=== PATIENT | female | born 1940 | race Caucasian/White ===

== ENCOUNTER 2017-02-15 00:38 | Observation (INO) ==
[2017-02-15] MEDS ORDERED: Aspirin 81 MG TAB.CHEW PO ONE (00:52)
--- NOTE | 2017-02-15 01:06 | Emergency Department Note ---
Disposition Clinical Impression: Angina at rest Chest pain Qualifiers: Chest pain type: unspecified Qualified Code(s): R07.9 - Chest pain, unspecified Disposition: Admitted As Inpatient Condition: Good Referrals: NO,PCP [Primary Care Provider] - Forms: ED Satisfaction Letter Time of Disposition: 01:25 Chest Pain HPI - General Chief Complaint: ED Chest Pain Stated Complaint: chest pain Time Seen by Provider: 02/15/17 00:44 Source: patient, family Limitations: no limitations Vital Signs Reviewed: Yes Nursing Notes Reviewed: Yes - History of Present Illness HPI Narrative: Sternal chest pressure radiating to her back and left ear that started 3-4 hours ago while watching TV from rest. Associated worsening dyspnea. Pt complaint: chest pain Onset (ago): hour(s) Duration: constant Onset: during rest Pain Location: substernal Severity: mild Severity scale (1-10): 3 Quality: tightness Pain Radiation: back, jaw/teeth Improves with: nothing Worsens with: nothing Associated symptoms: Reports: dyspnea Treatments prior to arrival chest pain: other (Aleve) - Related Data Home Medications Medication Instructions Recorded Confirmed Levothyroxine [Synthroid] 150 mcg PO DAILY 11/09/15 12/30/15 Metoprolol [Lopressor] 25 mg PO BID 11/09/15 12/30/15 Cholecalciferol (Vitamin D3) 400 unit PO DAILY 12/30/15 12/30/15 [Vitamin D3] Cyanocobalamin (Vitamin B-12) 100 mcg PO DAILY 12/30/15 12/30/15 [Vitamin B-12] Lisinopril 2.5 mg PO DAILY 12/30/15 12/30/15 Previous Rx's Medication Instructions Recorded Furosemide [Lasix] 20 mg PO DAILY #30 tablet 11/10/15 Allergies Allergy/AdvReac Type Severity Reaction Status Date / Time [id number]-Cyf-Puh Reductase AdvReac Intermediate Cramping Verified 11/09/15 13:22 Inhibitor of the [Statins] Muscles drinking alcohol AdvReac Redness of Uncoded 12/30/15 09:39 Skin All systems ED: reviewed and negative except as stated. Constitutional: Reports: as per HPI Eyes: Reports: as per HPI ENT ED: Reports: as per HPI Cardiovascular: Reports: chest pain Respiratory: Reports: dyspnea Gastrointestinal: Reports: as per HPI Genitourinary: Reports: as per HPI Musculoskeletal: Reports: as per HPI Integumentary: Reports: as per HPI Neurological: Reports: as per HPI Psychiatric: Reports: as per HPI Endocrine: Reports: as per HPI Hematological/Lymphatic: Reports: as per HPI Allergic/Immunologic: Reports: as per HPI Chest Pain PMH - Past Medical History Medical history: Reports: arthritis, cancer, CHF, hyperlipidemia, hypertension, kidney stones, thyroid disease Surgical history: Reports: appendectomy, breast surgery, cholecystectomy, orthopedic, other, pacemaker/AICD Psychiatric history: Reports: anxiety - Social History Smoking Status: Never smoker Alcohol use: Reports: none Drug use: Reports: none Physical Exam - General Limitations: no limitations General appearance: alert, in no apparent distress - Head Head exam: atraumatic - Eye Eye exam: Present: normal appearance - ENT ENT exam: normal exam - Neck Neck exam: Present: normal inspection, full ROM - Chest Chest inspection: Present: normal inspection, symmetric chest wall rise. Absent : tenderness - Respiratory Respiratory exam: Present: normal lung sounds bilaterally - Cardiovascular Cardiovascular exam: Present: tachycardia, normal heart sounds - Rectal Exam Rectal exam: Present: deferred - Extremities Exam Extremities exam: Present: normal inspection - Neurological Exam Neurological exam: Present: alert, oriented X3, CN II-XII intact - Psychiatric Psychiatric exam: Present: normal affect, normal mood - Skin Skin exam: Present: warm, dry, intact Course Course Narrative: She presents with chest pain. EKG shows a paced rhythm. Cardiac workup initiated - Reevaluation(s) Reevaluation #1: Patient's pain improved after one sublingual nitroglycerin Vital Signs Temperature 97.7 F 02/15/17 00:39 Pulse Rate 103 02/15/17 00:39 Respiratory Rate 20 02/15/17 00:39 Blood Pressure 162/100 02/15/17 00:39 O2 Sat by Pulse Oximetry 94 02/15/17 00:39 Temperature 97.7 F 02/15/17 00:39 Pulse Rate 105 02/15/17 01:09 Respiratory Rate 18 02/15/17 01:09 Blood Pressure 165/91 02/15/17 01:09 O2 Sat by Pulse Oximetry 98 02/15/17 01:12 Oxygen Delivery Oxygen Delivery Nasal Cannula Chest Pain - Lab Data Lab results reviewed: Yes I reviewed the patient's lab results. Result diagrams: 02/15/17 01:05 02/15/17 01:05 Lab Results 02/15/17 02/15/17 02/15/17 Range/Units 01:05 01:05 01:05 WBC 14.1 H (4.3-11.1) K/mcL RBC 5.10 H (3.82-4.97) M/mcL Hgb 14.2 (11.5-15.4) g/dL Hct 42.9 (35.3-44.9) % MCV 84.1 (83.0-100.0) fL MCH 27.8 L (28.0-33.3) pg MCHC 33.1 (31.6-35.5) g/dL RDW 14.7 H (11.5-14.5) % Plt Count 255 (140-400) K/mcL MPV 9.8 (9.4-12.4) fL Immature Gran % 0.4 (0-4) % Seg Neutrophils % 74.9 % Lymphocytes % 12.7 % Monocytes % 10.4 % Eosinophils % 1.3 % Basophils % 0.3 % Neutrophils # 10.6 H (1.6-8.9) K/mcL Lymphocytes # 1.8 (0.6-4.6) K/mcL Monocytes # 1.5 H (0.0-1.3) K/mcL Eosinophils # 0.2 (0.0-0.6) K/mcL Basophils # 0.0 (0.0-0.2) K/mcL Immature Plt Fraction 4.3 (1.1-6.1) % PT 11.9 (9.4-12.1) Seconds INR 1.1 APTT 30.1 (26.0-36.0) Seconds Sodium 139 (136-145) mEq/L Potassium 4.2 (3.5-4.5) mEq/L Chloride 105 (98-109) mEq/L Carbon Dioxide 26 (19-29) mEq/L BUN 14 (7-20) mg/dL Creatinine 0.73 (0.57-1.11) mg/dL Est GFR ( Amer) > 60 (> 60) Est GFR (Non-Af Amer) > 60 (> 60) BUN/Creatinine Ratio 19 (6-26) Glucose 166 H (70-99) mg/dL Calculated Osmolality 292 (280-300) Calcium 9.3 (8.6-10.8) mg/dL - Radiology Data Radiology results reviewed: Yes I reviewed the patient's radiology results. - EKG Data EKG attestation: Yes I reviewed and interpreted this EKG. EKG results narrative: Paced rhythm at 97 bpm NC 166 QRS 177 QT/QTC 419/474 Heart Score - Score History: Moderately Suspicious EKG: Normal Age: Greater than 65 Risk Factors: 1-2 risk factors Troponin: Less than normal limit HEART Score Total: 4
[2017-02-15] MEDS: Nitroglycerin 0.4 MG TAB.SUBL SL ONE ×2 (01:07→01:35)
[2017-02-15 01:09] LABS: Basophils % 0.3 %; Eosinophils # 0.2 K/mcL (0.0-0.6); Eosinophils % 1.3 %; Hematocrit 42.9 % (35.3-44.9); Hemoglobin 14.2 g/dL (11.5-15.4); Immature Granulocytes % 0.4 % (0-4); Immature Platelets 4.3 % (1.1-6.1); Lymphocytes # 1.8 K/mcL (0.6-4.6); Lymphocytes % 12.7 %; Mean Corpuscular HGB Conc 33.1 g/dL (31.6-35.5); Mean Corpuscular Hemoglobin 27.8 pg (28.0-33.3); Mean Corpuscular Volume 84.1 fL (83.0-100.0); Mean Platelet Volume 9.8 fL (9.4-12.4); Monocytes # 1.5 K/mcL (0.0-1.3); Monocytes % 10.4 %; Neutrophils # 10.6 K/mcL (1.6-8.9); Platelet Count 255 K/mcL (140-400); Red Cell Distribution Width 14.7 % (11.5-14.5); Segmented Neutrophils % 74.9 %
[2017-02-15 01:14] LABS: INR 1.1; Prothrombin Time 11.9 Seconds (9.4-12.1)
[2017-02-15 01:16] LABS: Activated Partial Thrombo Time 30.1 Seconds (26.0-36.0)
[2017-02-15 01:22] LABS: BUN/Creatinine Ratio 19 (6-26); Blood Urea Nitrogen 14 mg/dL (7-20); Calcium 9.3 mg/dL (8.6-10.8); Carbon Dioxide 26 mEq/L (19-29); Chloride 105 mEq/L (98-109); Glucose 166 mg/dL (70-99); Osmolality,Calculated 292 (280-300); Potassium 4.2 mEq/L (3.5-4.5); Sodium 139 mEq/L (136-145); eGFR For African Americans > 60 (> 60); eGFR For Non-African Americans > 60 (> 60)
[2017-02-15] MEDS ORDERED: *HR* HYDROcodone/Acet 10/325 mg TABLET PO ONE (02:25)
[2017-02-15 05:14] LABS: Basophils % 0.2 %; Eosinophils % 0.1 %; Hematocrit 41.6 % (35.3-44.9); Hemoglobin 13.8 g/dL (11.5-15.4); Immature Granulocytes % 0.4 % (0-4); Immature Platelets 4.4 % (1.1-6.1); Lymphocytes # 1.3 K/mcL (0.6-4.6); Lymphocytes % 7.9 %; Mean Corpuscular HGB Conc 33.2 g/dL (31.6-35.5); Mean Corpuscular Hemoglobin 28.2 pg (28.0-33.3); Mean Corpuscular Volume 84.9 fL (83.0-100.0); Monocytes # 1.5 K/mcL (0.0-1.3); Monocytes % 9.1 %; Neutrophils # 13.5 K/mcL (1.6-8.9); Platelet Count 237 K/mcL (140-400); Red Cell Distribution Width 14.8 % (11.5-14.5); Segmented Neutrophils % 82.3 %
[2017-02-15] MEDS ORDERED: *HR* Morphine 2 MG/ML SYRINGE IVP ONE (05:14)
[2017-02-15 05:30] LABS: Albumin 3.4 g/dL (3.5-5.0); Albumin/Globulin Ratio 0.9 (1.1-2.2); Bilirubin,Direct 0.2 mg/dL (0.0-0.5); Bilirubin,Indirect 0.3 mg/dL (0.0-1.2); Bilirubin,Total 0.5 mg/dL (0.2-1.2); Chol/HDL Ratio 4.3 (0-4.9); Magnesium 1.6 mg/dL (1.6-2.6); Total Protein 7.4 g/dL (6.0-8.3)
[2017-02-15] MEDS ORDERED: Nitroglycerin 0.4 MG TAB.SUBL SL PRN (05:33)
[2017-02-15 06:35] LABS: Thyroid Stimulating Hormone 0.447 mcIU/mL (0.350-4.840)
[2017-02-15] MEDS ORDERED: Naloxone 0.4 MG/ML INJ IVP PRN (07:33)
--- NOTE | 2017-02-15 09:01 | Internal Med History&Physical ---
Date of Encounter: 02/15/17 Time of Encounter: 08:00 Assessment and Plan (1) Chest pain Current visit: Yes Status: Acute Acute precordial chest pain relieved with nitroglycerin in the ER. No acute ST segment changes on EKG. Monitor with telemetry. Troponins are negative so far. Will order stress test. Keep nothing by mouth for now. High risk for coronary artery disease and ACS. Qualifiers: Chest pain type: precordial pain Qualified Code(s): R07.2 - Precordial pain (2) Hypothyroidism Current visit: Yes Status: Chronic Continue levothyroxine . TSH within normal limits Qualifiers: Hypothyroidism type: other Qualified Code(s): E03.8 - Other specified hypothyroidism (3) CHF (congestive heart failure) Current visit: No Status: Chronic Continue Lasix. Patient is not in acute CHF exacerbation. Qualifiers: Congestive heart failure type: systolic Congestive heart failure chronicity : chronic Qualified Code(s): I50.22 - Chronic systolic (congestive) heart failure Internal Medicine - H&P: HPI Chief complaint: Chest pain Admitted From: Emergency Dept Plans for Post Hospital Care: Home History of present illness: Ms. Sykes is a 77 year old female patient with a history of hypertension, hypothyroidism, cardiomyopathy, status post permanent pacemaker presented to the ER with complaints of chest pressure. This began last evening initially has some pain in her left ear and then she began to have some pain in her left neck and this progressed to severe pain in her chest that felt like a pressure and was 10 out of 10 in severity at its worse. So she came to the ER and was given aspirin, morphine and nitroglycerin with improvement in her symptoms. Currently she is chest pain-free. She does not have any pain in her ear either. She denies any palpitations but had did have some shortness of breath associated with it. No cough. No fever chills or night sweats. No nausea or vomiting. She has also noticed some increased swelling in her leg over the past couple of days. Patient has a permanent pacemaker that was placed after she received treatment for breast cancer. This was apparently for cardiomyopathy. He had been admitted here in October 2015 for acute congestive heart failure and at that time 2-D echocardiogram showed EF of 40-45%. Past Med Surg Social Fam HX - Past Medical History Attestation: Yes The following information was validated with the patient. Source: patient, old records reviewed Medical history: arthritis, cancer (breast), cardiomyopathy, CHF, hyperlipidemia , hypertension, kidney stones, thyroid disease Psychiatric history: anxiety - Past Surgical History Surgical History: appendectomy, breast surgery, cholecystectomy, hysterectomy, orthopedic, other, pacemaker/AICD - Social History Smoking Status: Never smoker Smokeless Tobacco Status: No Alcohol use: none Drug use: none - Family History Mother Living Status: Hx Family Cardiac Disorders: Yes Hx Family Respiratory Disorders: No Hx Family Cancer: No Hx Family GI Disorders: No Hx Family Endocrine Disorder: Yes Hx Family Neuromuscular Disorders: No Hx Family Neurologic Disorders: No Hx Family HEENT Disorders: No Hx Family Autoimmune Disorders: No Father Hx Family Cardiac Disorders: Yes Hx Family Respiratory Disorders: No Hx Family Cancer: No Hx Family GI Disorders: No Hx Family Endocrine Disorder: No Hx Family Neuromuscular Disorders: No Hx Family Neurologic Disorders: No Hx Family HEENT Disorders: No Hx Family Autoimmune Disorders: No Internal Medicine - H&P: Meds Levothyroxine [Synthroid] 150 mcg PO DAILY 11/09/15 [History] Metoprolol [Lopressor] 25 mg PO BID 11/09/15 [History] Furosemide [Lasix] 20 mg PO DAILY #30 tablet 11/10/15 [Rx] Cholecalciferol (Vitamin D3) [Vitamin D3] 400 unit PO DAILY 12/30/15 [History] Cyanocobalamin (Vitamin B-12) [Vitamin B-12] 100 mcg PO DAILY 12/30/15 [History] Lisinopril 2.5 mg PO DAILY 12/30/15 [History] Ibuprofen [Motrin] 400 mg PO Q8HR PRN 02/15/17 [History] Allergies Gnftreb-Eak-Rsc Reductase Inhibitor [Statins] Adverse Reaction (Intermediate, Verified 11/09/15 13:22) Cramping of the Muscles drinking alcohol Adverse Reaction (Uncoded 12/30/15 09:39) Redness of Skin All Systems PM: A 10-system review of systems was performed and is negative for pertinent findings except as documented above in the HPI. - Constitutional Constitutional: no chills, no fever(s), no night sweats - EENT Eyes: no change in vision, no discharge, no pain, no photophobia Ears: ear pain (left), no ear discharge, no tinnitus Nose, mouth and throat: no dysphagia, no nasal discharge, no neck pain, no sore throat - Cardiovascular Cardiovascular ROS IM: chest pain, no diaphoresis, no dyspnea, no lightheadedness, no palpitations, no syncope - Respiratory Respiratory: dyspnea, no cough, no wheezing, no excessive phlegm production - Gastrointestinal Gastrointestinal: no abdominal pain, no diarrhea, no hematemesis, no hematochezia, no melena, no nausea, no vomiting - Genitourinary Genitourinary: no change in urinary stream, no dysuria, no flank pain, no hematuria - Musculoskeletal Musculoskeletal ROS IM: no numbness, no tingling - Integumentary Integumentary IM: no rash, no unusual bruising - Neurological Neurological ROS: no confusion, no convulsions, no focal weakness, no numbness, no tingling, no tremor(s) - Hematologic/Lymphatic Hematologic/Lymphatic: no easy bruising - Constitutional Vitals: Temp Pulse Resp BP Pulse Ox 97.7 F 89 17 101/64 95 02/15/17 07:24 02/15/17 07:24 02/15/17 07:24 02/15/17 07:24 02/15/17 07:24 General appearance: Present: cooperative, mild distress, A&O X 3, obese, answers questions appropriately - Eye Eye exam: Present: EOMI, PERRL, conjuntiva pink, sclera anicteric - Respiratory Respiratory exam: Present: CTAB. Absent: accessory muscle use, rales, rhonchi, wheezes - Cardiovascular Cardiovascular exam: Present: RRR, +S1, +S2. Absent: diastolic murmur, gallop, rubs, systolic murmur - GI/Abdominal GI/Abdominal exam: Present: normal bowel sounds, soft, no peritoneal signs. Absent: distended, tenderness - Extremities Exam Extremities exam: Present: warm, radial pulses palpable and symetrical. Absent : calf tenderness, cyanotic, pedal edema - Neurological Exam Neurological exam: Present: alert, oriented X3, no focal deficits. Absent: facial droop, speech deficit - Skin Skin exam: Present: dry, intact Internal Med - H&P Results - Labs CBC & Chem 7: 02/15/17 05:04 02/15/17 01:05 Labs: Short CBC 02/15/17 Range/Units 05:04 WBC 16.4 H (4.3-11.1) K/mcL Hgb 13.8 (11.5-15.4) g/dL Hct 41.6 (35.3-44.9) % Plt Count 237 (140-400) K/mcL Neutrophils # 13.5 H (1.6-8.9) K/mcL Cardiac Enzymes 02/15/17 Range/Units 05:04 Troponin I 0.01 (0-0.03) ng/mL Liver Function 02/15/17 Range/Units 05:04 Total Bilirubin 0.5 (0.2-1.2) mg/dL Direct Bilirubin 0.2 (0.0-0.5) mg/dL AST 15 (5-34) Units/L ALT 11 (0-55) Units/L Alkaline Phosphatase 79 (38-126) Units/L Albumin 3.4 L (3.5-5.0) g/dL
[2017-02-15] MEDS ORDERED: Regadenoson 0.4 MG/5 ML SYRINGE IVP ONE (11:26)
[2017-02-15 16:22] LABS: Bilirubin,Urine Negative (Negative); Blood,Urine Negative (Negative); Clarity,Urine Clear (Clear); Color,Urine Yellow (Yellow); Glucose,Urine (UA) Normal (Normal); Ketones,Urine Negative (Negative); Leukocyte Esterase,Urine Negative (Negative); Nitrite,Urine Negative (Negative); Protein,Urine Negative (Neg-Trace); Specific Gravity,Urine 1.018 (1.010-1.025); Urobilinogen,Urine Normal (Normal)
[2017-02-15] MEDS ORDERED: Ondansetron 4 MG/2 ML VIAL IVP PRN (18:19)
--- NOTE | 2017-02-15 19:05 | Electrocardiograph Report ---
[place] [id number] Test Date: 2017-02-15 Pat Name: Aida Sykes Department: 105 Room: 3B Gender: F Scientific Specialist: : 1940 Requested By: Freddy Wiseman Order Number: [id number] Reading MD: Adina Trevino Measurements Intervals [place] Rate: 97 P: 52 IA: 166 QRS: -65 QRSD: 177 T: 94 QT: 419 QTc: 474 Interpretive Statements ELECTRONIC VENTRICULAR PACEMAKER ABNORMAL RHYTHM ECG Electronically Signed On 02-15-2017 19:03:51 EDT by Adina Trevino
--- NOTE | 2017-02-15 19:06 | Electrocardiograph Report ---
[place] [id number] Test Date: 2017-02-15 Pat Name: Aida Sykes Department: 113 Room: 3B Gender: F Floor Surfacer: ASHUTOSH : 1940 Requested By: Leidy Nunez Order Number: [id number] Reading MD: Adina Trevino Measurements Intervals [place] Rate: 97 P: 136 [place]: 169 QRS: 245 QRSD: 165 T: 103 QT: 430 QTc: 484 Interpretive Statements ELECTRONIC VENTRICULAR PACEMAKER ABNORMAL RHYTHM ECG Electronically Signed On 02-15-2017 19:04:51 EDT by Adina Trevino
[2017-02-16] MEDS ORDERED: Regadenoson 0.4 MG/5 ML SYRINGE IVP ONE (06:23)
[2017-02-16] MEDS ORDERED: Aspirin Enteric Coated 81 MG Tablet PO SCH (09:00)
[2017-02-16 09:54] LABS: Basophils % 0.3 %; Eosinophils # 0.2 K/mcL (0.0-0.6); Hematocrit 41.5 % (35.3-44.9); Hemoglobin 13.5 g/dL (11.5-15.4); Immature Granulocytes % 0.3 % (0-4); Lymphocytes # 1.3 K/mcL (0.6-4.6); Lymphocytes % 11.4 %; Mean Corpuscular HGB Conc 32.5 g/dL (31.6-35.5); Mean Corpuscular Hemoglobin 28.2 pg (28.0-33.3); Mean Corpuscular Volume 86.6 fL (83.0-100.0); Mean Platelet Volume 10.2 fL (9.4-12.4); Monocytes # 1.1 K/mcL (0.0-1.3); Monocytes % 9.8 %; Neutrophils # 8.8 K/mcL (1.6-8.9); Platelet Count 225 K/mcL (140-400); Red Blood Count 4.79 M/mcL (3.82-4.97); Red Cell Distribution Width 15.5 % (11.5-14.5); Segmented Neutrophils % 76.2 %
[2017-02-16 09:59] LABS: BUN/Creatinine Ratio 18 (6-26); Blood Urea Nitrogen 12 mg/dL (7-20); Calcium 8.8 mg/dL (8.6-10.8); Carbon Dioxide 25 mEq/L (19-29); Chloride 105 mEq/L (98-109); Glucose 193 mg/dL (70-99); Osmolality,Calculated 291 (280-300); Sodium 138 mEq/L (136-145); eGFR For African Americans > 60 (> 60); eGFR For Non-African Americans > 60 (> 60)
--- NOTE | 2017-02-16 11:11 | Nuclear Medicine Stress Report ---
Exercise Nuclear Stress 2 day Name: Aida Sykes Date of Study: 02/15/2017 Date: 1940 Ht: 67.0 in Medical Record#: [id number] Age: 77 Wt: 237.0 lb Gender: Female Order #: [id number] Location: [facility] Room: [facility] Supervising Provider: Daniel Calderón CNP Reading Physician: Roger Díaz DO, FACC, FASWV Ordering Physician: Leidy Nunez CNP Primary Care Physician: Wisam Donald MD Stress Technologist: Christopher Reynolds, EXECUTIVE OFFICER, [employer] Central [employer] Assistant: Sarna Newby Indications: Chest Pain Impression: Ventricular paced rhythm throughout the study. Pharmacologic stress ECG is non diagnostic for ischemia due to baseline paced rhythm. Gated EF = 51%. Medium sized, moderate intensity, fixed apex, apical septal, apical lateral, and apical inferior defect possibly due to a prior infarct. Medium sized, moderate intensity, primarily fixed inferior perfusion defect possibly due to a prior infarct. This was a fair quality study; limited by increased GI uptake obscuring complete evaluation of the inferior segments. Clinical correlation suggested. History: Hypertension Hypercholesteremia Stress Test Summary: Stress Test Type: Pharmacologic Regadenoson 0.4mg/5ml given IV Baseline Information: Initial Heart Rate: 99 Blood Pressure: 128/80 Stress Information: Stress Time: 4 min 00 sec Test Terminated Due to (primary): Completed Protocol Maximum Blood Pressure: 116/70 Maximum Heart Rate: 117 Percent Maximum Heart Rate Achieved: 81 Double Product: [id number] METS Reached: 1 Symptoms: C/o feeling warm Nuclear Summary: SPECT myocardial perfusion imaging using Tc99m Sestamibi given intravenously was performed at rest and following cardiac stress testing. The resting images were obtained following initial dose of 10.8 mCi. Following stress an additional dose of 35.4 mCi was given at peak exercise or 30 seconds post regadenoson infusion. Medication Given: Time Medication Dose Units Route Findings: Stress Note * Ventricular paced rhythm throughout the study. * No baseline arrhythmias were noted. * No arrhythmias were noted during stress. * Patient had no chest pain during stress. * Pharmacologic stress ECG is non diagnostic for ischemia due to baseline paced rhythm. Hemodynamic responses * Normal hemodynamic responses to pharmacologic stress. Study Quality * Study quality was fair. GI uptake obscures visualization of the inferior segments. Gated EF % * Gated EF = 51%. Left Ventricle * The left ventricle is dilated. * LVEDV = 136 mL. Apical Perfusion Rest * The apex segment shows a moderate reduction in perfusion. Apical Perfusion Stress * The apex segment shows a moderate reduction in perfusion. Inferior Perfusion Rest * The inferior segment shows a moderate reduction in perfusion. Inferior Perfusion Stress * The inferior segment shows a moderate reduction in perfusion. Updated by Roger Díaz DO, FACThor, BIB, NATY on 02/16/2017 11:05:00 AM electronically signed on 02/16/2017 11:06:38 AM with status of Final
--- NOTE | 2017-02-16 14:58 | Discharge Summary ---
Date of Encounter: 02/16/17 Time of Encounter: 12:30 - Discharge Diagnosis (1) Chest pain Priority: Primary Status: Acute Comments: Patient reports chest pain onset 2 days ago while at rest. She stated began her left ear, radiated down her left neck, and her left chest. She said it felt like an earache, dull ache, and a pressure. It lasted for 2 full days. She did have shortness of breath. It was relieved with nitroglycerin, aspirin, and morphine. She also reported pain in posterior shoulders. She did say that she had some emesis with her stress test after she was given the medication.. She denied any nausea, vomiting, or diaphoresis with the chest pain for 2 days. She denies chest pain now. Stress test today showed gated EF of 51%, medium sized moderate intensity fixed apex, apical septal, apical lateral, apical inferior defect possibly due to prior infarct. There is also a medium sized, moderate intensity, primarily fixed inferior perfusion defect possibly due to prior infarct. Patient had echocardiogram in March, LVEF is 45%, not all segments were well visualized. Right ventricular size and function, moderate somewhat posteriorly directed mitral regurg which may be underestimated, mild tricuspid regurgitation. No pulmonary hypertension, and IVC is not dilated. Patient and heart catheter in Dec, 2015. There is mild three-vessel coronary artery disease with a mild global LV dysfunction. Ejection fraction was 40%. Patient denies pain. She says that she wants to go home, she does not want to stay. She has appointment in March with cardiology, our secretary board [employer] commissioners got her another appointment on March 04. In a personal conversation with cardiology [employer], outpatient follow up is recommended as long as she is not having chest pain, which she has not. Qualifiers: Chest pain type: unspecified Qualified Code(s): R07.9 - Chest pain, unspecified (2) CHF (congestive heart failure) Priority: Secondary Status: Chronic Comments: No acute exacerbation. Continue lasix. Qualifiers: Congestive heart failure type: systolic Congestive heart failure chronicity : chronic Qualified Code(s): I50.22 - Chronic systolic (congestive) heart failure (3) Hypothyroidism Priority: Secondary Status: Chronic Comments: TSH WNL. Continue home medication. Qualifiers: Hypothyroidism type: other Qualified Code(s): E03.8 - Other specified hypothyroidism - Discharge Medications Home Medications: Levothyroxine [Synthroid] 150 mcg PO DAILY 11/09/15 [History] Metoprolol [Lopressor] 25 mg PO BID 11/09/15 [History] Furosemide [Lasix] 20 mg PO DAILY #30 tablet 11/10/15 [Rx] Cholecalciferol (Vitamin D3) [Vitamin D3] 400 unit PO DAILY 12/30/15 [History] Cyanocobalamin (Vitamin B-12) [Vitamin B-12] 100 mcg PO DAILY 12/30/15 [History] Lisinopril 2.5 mg PO DAILY 12/30/15 [History] Ibuprofen [Motrin] 400 mg PO Q8HR PRN 02/15/17 [History] Allergies/Adverse Reactions: Allergies [id number] Reductase Inhibitor [Statins] Adverse Reaction (Intermediate, Verified 11/09/15 13:22) Cramping of the Muscles drinking alcohol Adverse Reaction (Uncoded 12/30/15 09:39) Redness of Skin Procedures/tests Complete & Pending: Procedures Performed prior 72 hours Category Date Time Status NM ciaran perf SPECT multi [NM] Routine Exams 02/15/17 07:34 Taken ECG 12 lead ECG [ECG] Routine Y 02/15/17 05:26 Completed SP pharm nuclear stress Routine Y 02/16/17 09:05 Completed Date of admission: 02/15/17 02:32 Primary care physician: Jose Rose MD Discharging clinician: Pati Shea Anticipated date of discharge: 02/16/17 - Patient Status Disposition: Home, Self-Care Condition: Good Functional capacity at discharge: independent ambulation Overall status at discharge: patient is back to baseline - Discharge Instructions Follow Up With: Jsoe Rose MD [Primary Care Provider] - 02/23/17 10:00 am Additional Instructions: Please follow your primary care physician in 7-10 days. We have gotten you another appointment with cardiology. It is on March 04. As we discussed, return immediately to the emergency department if he began having chest pain, shortness of breath, dizziness, fainting spells, or your ear pain returns. Resume home medications. - Diet and Activity Activity: increase activity as tolerated Diet: advance to your usual diet Hospital course: Ms. Sykes is a 77 year old female with prior medical history hypothyroidism, CHF, pacemaker, breast cancer, hypertension, cardiomyopathy. She presented to the emergency department yesterday with 2 day history of left chest pain that actually began in her left ear, radiated down her left neck, into her left chest. She thought it was an earache. She describes it as an earache, and all pressure. She also reports the same pressure in her posterior shoulders. She reported shortness of breath, no nausea, vomiting, diaphoresis. Pain was relieved by nitroglycerin, aspirin, and morphine. She denies chest pain since that time in the emergency department. Patient had a stress test today 2 day stress test, ECG was nondiagnostic for ischemia due to baseline paced rhythm. Gated EF is 55%. There is a medium sized moderate intensity, primarily fixed anterior perfusion defect possibly due to prior infarct. The study was fair quality limited by increased GI uptake , and obscuring complete evaluation of the inferior segments. In a personal conversation with cardiology [employer], outpatient follow-up is recommended. Our secretary board [employer] commissioners got her appointment on March 04. Patient is not having pain at this time. We did discuss the fact that if any of these problems do arise again, patient will return to the emergency department. Troponins were negative, BNP was only mildly elevated 113. Lungs are clear, no wheezing, rales, rhonchi. S1- S2 is heard, no gallops clicks or murmurs. Patient has minimal peripheral edema. She is not in CHF exacerbation at this time. Continue Lasix at home. Vitals have been stable. Labs are within normal limits. Patient does not want to stay, outpatient follow-up is sufficient. Patient is stable and ready for discharge. - Time Spent with Patient Total time spent providing and/or coordinating discharge services: Less than 30 minutes - Constitutional Vitals: Temp Pulse Resp BP Pulse Ox 97.6 F 104 16 138/84 91 02/16/17 12:16 02/16/17 12:16 02/16/17 12:16 02/16/17 12:16 02/16/17 12:16 General appearance: Present: cooperative, mild distress, A&O X 3, obese, answers questions appropriately - Head Head exam: Present: normal inspection - Eye Eye exam: Present: normal appearance, conjuntiva pink - ENT ENT exam: Present: mucous membranes moist, normal exam, normal external ear exam - Neck Neck exam general surgery: Present: normal inspection. Absent: lymphadenopathy , tenderness - Respiratory Respiratory exam: Present: CTAB. Absent: rales, respiratory distress, rhonchi, wheezes - Cardiovascular Cardiovascular exam: Present: RRR, +S1, +S2. Absent: clicks, diastolic murmur, gallop, systolic murmur - GI/Abdominal GI/Abdominal exam: Present: normal bowel sounds, soft. Absent: distended, hepatomegaly, tenderness - Neurological Exam Neurological exam: Present: alert, oriented X3, no focal deficits. Absent: facial droop, speech deficit - Skin Skin exam: Present: dry, intact, normal color, warm
[2017-02-16 16:06] VITALS: BP 134/74
== END 2017-02-16 18:05 | disposition home or self-care (01) ==
LOC: 3BNU 00:38 → EMEROO 00:38 → 3BNU 03:13
PROVIDERS: ADMIT Internal Medicine; ATTEND Nurse Practitioner Family